=== PATIENT | female | born 1935 | race Caucasian/White ===

== ENCOUNTER 2018-06-02 12:18 | Inpatient (IN) | payer MEDICARE ==
[2018-06-02] MEDS ORDERED: SODIUM CHLORIDE 0.9% 1,000 ML IV STA (12:34)
--- NOTE | 2018-06-02 13:01 | ED ---
Weakness HPI - General Chief complaint: Weakness Stated complaint: Weakness Time Seen by Provider: 06/02/18 12:25 Source: patient, EMS, RN notes reviewed Mode of arrival: EMS Limitations: altered mental status - History of Present Illness Initial comments: This an 83-year-old female presents emergency department via EMS generalized weakness. Patient reports that her family is concerned about her and called 911. Patient states she has no specific complaints. Patient denies any recent fever, chills, headache, dizziness, blurred vision, nausea, vomiting, diarrhea, constipation, chest pain or shortness of breath. She has had a slight cough. She has no dysuria no hematuria. Patient is found to be slightly confused upon questioning. Patient has no focal weakness per EMS or patient. Patient denies missing her medications. She states she is taking her medications as directed. - Related Data Home Medications Medication Instructions Recorded Confirmed Aspirin 81 mg PO DAILY 02/25/15 06/02/18 Cephalexin 500 mg PO DAILY 02/25/15 06/02/18 Cholecalciferol [Vitamin D3] 1,000 unit PO DAILY 02/25/15 06/02/18 Cranberry Conc/C/Bacill Coag 1 tab PO DAILY 02/25/15 06/02/18 [Cranberry Tablet] Diazepam [Valium] 5 mg PO HS 02/25/15 06/02/18 Furosemide [Lasix] 20 mg PO MO 02/25/15 06/02/18 Hydrocodone/Acetaminophen 1 tab PO BID 02/25/15 06/02/18 [Hydrocodon-Acetaminophen 5-325] Lisinopril 20 mg PO DAILY 02/25/15 06/02/18 diphenhydrAMINE [Benadryl] 50 mg PO HS 02/25/15 06/02/18 Anastrozole [Arimidex] 1 mg PO DAILY 06/02/18 06/02/18 Atorvastatin Calcium [Lipitor] 20 mg PO DAILY 06/02/18 06/02/18 Levothyroxine Sodium [Synthroid] 75 mcg PO [id number] 06/02/18 06/02/18 Levothyroxine Sodium [Synthroid] 150 mcg PO MAN 06/02/18 06/02/18 Metoprolol Succinate [Toprol Xl] 50 mg PO HS 06/02/18 06/02/18 Allergies Allergy/AdvReac Type Severity Reaction Status Date / Time prochlorperazine edisylate Allergy Anaphylaxis, Verified 06/02/18 12:43 [From Compazine] THROAT SWELLS UP prochlorperazine maleate Allergy Anaphylaxis, Verified 06/02/18 12:43 [From Compazine] THROAT SWELLS UP Review of Systems ROS Statement: Those systems with pertinent positive or pertinent negative responses have been documented in the HPI. ROS Other: All systems not noted in ROS Statement are negative. Past Medical History Past Medical History: Cancer, CVA/TIA, Hyperlipidemia, Hypertension, Musculoskeletal Disorder, Osteoarthritis (OA), Thyroid Disorder Additional Past Medical History / Comment(s): TIA YEARS AGO, R/T STRESS. "BORDERLINE" KIDNEY PROB, FOLLOWS LOW-K+ DIET. HAS METAL IN RT HIP, HX SEV OR' S. MENIERES. OCC EDEMA IN LEGS. hx RT BREAST CA History of Any Multi-Drug Resistant Organisms: None Reported Past Surgical History: Appendectomy, Hysterectomy, Joint Replacement Additional Past Surgical History / Comment(s): RT HIP REPLACEMENT X7. EXC CATARACTS JUSTIN.RT BREAST LUMPECTOMY Past Anesthesia/Blood Transfusion Reactions: Postoperative Nausea & Vomiting ( PONV) Past Psychological History: No Psychological Hx Reported Smoking Status: Never smoker - Past Family History Mother Family Medical History: Cancer General Exam Limitations: altered mental status General appearance: alert, in no apparent distress Head exam: Present: atraumatic, normocephalic, normal inspection Eye exam: Present: normal appearance, PERRL, EOMI. Absent: scleral icterus, conjunctival injection, periorbital swelling ENT exam: Present: normal exam, normal oropharynx, mucous membranes moist, TM's normal bilaterally, normal external ear exam Neck exam: Present: normal inspection, full ROM. Absent: tenderness, meningismus, lymphadenopathy Respiratory exam: Present: normal lung sounds bilaterally. Absent: respiratory distress, wheezes, rales, rhonchi, stridor Cardiovascular Exam: Present: regular rate, normal rhythm, normal heart sounds. Absent: systolic murmur, diastolic murmur, rubs, gallop, clicks GI/Abdominal exam: Present: soft, normal bowel sounds. Absent: distended, tenderness, guarding, rebound, rigid Extremities exam: Present: normal inspection, full ROM, normal capillary refill. Absent: tenderness, pedal edema, joint swelling, calf tenderness Neurological exam: Present: alert, oriented X3, CN II-XII intact, reflexes normal, other (Finger to nose intact bilaterally without over shooting). Absent : motor sensory deficit Skin exam: Present: warm, dry, intact, normal color. Absent: rash Course Vital Signs 06/02/18 12:30 Temperature 98.6 F Pulse Rate 82 Respiratory 18 Rate Blood Pressure 184/98 O2 Sat by Pulse 100 Oximetry Medical Decision Making - Medical Decision Making 83-year-old female presents emergency department for weakness, confusion. Patient's found to have urinary tract infection. Patient will be admitted for IV antibiotics secondary to urinary tract infection with confusion. - Lab Data Result diagrams: 06/02/18 14:45 06/02/18 14:45 Lab Results 06/02/18 06/02/18 06/02/18 Range/Units 14:45 14:45 14:45 WBC 11.1 H (3.8-10.6) k/uL RBC 4.04 (3.80-5.40) m/uL Hgb 12.6 (11.4-16.0) gm/dL Hct 38.1 (34.0-46.0) % MCV 94.3 (80.0-100.0) fL MCH 31.1 (25.0-35.0) pg MCHC 33.0 (31.0-37.0) g/dL RDW 14.3 (11.5-15.5) % Plt Count 246 (150-450) k/uL Neutrophils % 75 % Lymphocytes % 12 % Monocytes % 8 % Eosinophils % 3 % Basophils % 0 % Neutrophils # 8.3 H (1.3-7.7) k/uL Lymphocytes # 1.3 (1.0-4.8) k/uL Monocytes # 0.9 (0-1.0) k/uL Eosinophils # 0.4 (0-0.7) k/uL Basophils # 0.0 (0-0.2) k/uL PT (9.0-12.0) sec INR (<1.2) APTT (22.0-30.0) sec Sodium 134 L (137-145) mmol/L Potassium 5.5 H (3.5-5.1) mmol/L Chloride 103 (98-107) mmol/L Carbon Dioxide 22 (22-30) mmol/L Anion Gap 9 mmol/L BUN 28 H (7-17) mg/dL Creatinine 1.33 H (0.52-1.04) mg/dL Est GFR (CKD-EPI)AfAm 43 (>60 ml/min/1.73 sqM) Est GFR (CKD-EPI)NonAf 37 (>60 ml/min/1.73 sqM) Glucose 115 H (74-99) mg/dL Plasma Lactic Acid [place] (0.7-2.0) mmol/L Calcium 9.3 (8.4-10.2) mg/dL Magnesium 2.3 (1.6-2.3) mg/dL Total Bilirubin 0.6 (0.2-1.3) mg/dL AST 25 (14-36) U/L ALT 28 (9-52) U/L Alkaline Phosphatase 104 (38-126) U/L Total Creatine Kinase 105 (30-135) U/L CK-MB (CK-2) 1.1 (0.0-2.4) ng/mL CK-MB (CK-2) Rel Index 1.0 Troponin I <0.012 (0.000-0.034) ng/mL Total Protein 7.3 (6.3-8.2) g/dL Albumin 4.1 (3.5-5.0) g/dL Urine Color Urine Appearance (Clear) Urine pH (5.0-8.0) Ur Specific [place] (1.001-1.035) Urine Protein (Negative) Urine Glucose (UA) (Negative) Urine Ketones (Negative) Urine Blood (Negative) Urine Nitrite (Negative) Urine Bilirubin (Negative) Urine Urobilinogen (<2.0) mg/dL Ur Leukocyte Esterase (Negative) Urine RBC (0-5) /hpf Urine WBC (0-5) /hpf Urine WBC Clumps (None) /hpf Urine Bacteria (None) /hpf Urine Mucus (None) /hpf 06/02/18 06/02/18 06/02/18 Range/Units 14:45 14:45 15:00 WBC (3.8-10.6) k/uL RBC (3.80-5.40) m/uL Hgb (11.4-16.0) gm/dL Hct (34.0-46.0) % MCV (80.0-100.0) fL MCH (25.0-35.0) pg MCHC (31.0-37.0) g/dL RDW (11.5-15.5) % Plt Count (150-450) k/uL Neutrophils % % Lymphocytes % % Monocytes % % Eosinophils % % Basophils % % Neutrophils # (1.3-7.7) k/uL Lymphocytes # (1.0-4.8) k/uL Monocytes # (0-1.0) k/uL Eosinophils # (0-0.7) k/uL Basophils # (0-0.2) k/uL PT 9.5 (9.0-12.0) sec INR 0.9 (<1.2) APTT 18.7 L (22.0-30.0) sec Sodium (137-145) mmol/L Potassium (3.5-5.1) mmol/L Chloride (98-107) mmol/L Carbon Dioxide (22-30) mmol/L Anion Gap mmol/L BUN (7-17) mg/dL Creatinine (0.52-1.04) mg/dL Est GFR (CKD-EPI)AfAm (>60 ml/min/1.73 sqM) Est GFR (CKD-EPI)NonAf (>60 ml/min/1.73 sqM) Glucose (74-99) mg/dL Plasma Lactic Acid [place] 0.8 (0.7-2.0) mmol/L Calcium (8.4-10.2) mg/dL Magnesium (1.6-2.3) mg/dL Total Bilirubin (0.2-1.3) mg/dL AST (14-36) U/L ALT (9-52) U/L Alkaline Phosphatase (38-126) U/L Total Creatine Kinase (30-135) U/L CK-MB (CK-2) (0.0-2.4) ng/mL CK-MB (CK-2) Rel Index Troponin I (0.000-0.034) ng/mL Total Protein (6.3-8.2) g/dL Albumin (3.5-5.0) g/dL Urine Color Light Yellow Urine Appearance Clear (Clear) Urine pH 6.5 (5.0-8.0) Ur Specific [place] 1.011 (1.001-1.035) Urine Protein 2+ H (Negative) Urine Glucose (UA) Negative (Negative) Urine Ketones Negative (Negative) Urine Blood Negative (Negative) Urine Nitrite Positive H (Negative) Urine Bilirubin Negative (Negative) Urine Urobilinogen 2.0 (<2.0) mg/dL Ur Leukocyte Esterase Small H (Negative) Urine RBC 1 (0-5) /hpf Urine WBC 26 H (0-5) /hpf Urine WBC Clumps Rare H (None) /hpf Urine Bacteria Many H (None) /hpf Urine Mucus Rare H (None) /hpf Disposition Clinical Impression: Urinary tract infection, Altered mental status Disposition: ADMITTED IP TO THIS HOSP Condition: Fair Referrals: Emilee Gutiérrez III, MD [Primary Care Provider] - 1-2 days
--- NOTE | 2018-06-02 13:40 | CT ---
EXAMINATION TYPE: CT brain wo con DATE OF EXAM: 06/02/2018 COMPARISON: 02/07/2013 HISTORY: weakness CT DLP: 1054.[address] of the brain was performed. The ventricles, basal cisterns and sulci overlying the cerebral convexities demonstrate mild enlargem ent. There is no evidence for intracranial hemorrhage or sulcal effacement. There is decreased attenuation about the periventricular white matter and deep white matter of both c erebral hemispheres, compatible with chronic small vessel ischemia. Differential diagnosis does inclu de demyelination. No mass effects are seen.No midline shift. Osseous calvarium is intact. If symptoms persist consider MRI. IMPRESSION: 1. Age related atrophic and chronic small vessel ischemic change without acute intracranial process s een at this time.
[2018-06-02 14:59] LABS: Basophils % (A) 0 %; Eosinophils # (A) 0.4 k/uL (0-0.7); Eosinophils % (A) 3 %; HCT 38.1 % (34.0-46.0); HGB 12.6 gm/dL (11.4-16.0); Lymphocytes # (A) 1.3 k/uL (1.0-4.8); Lymphocytes % (A) 12 %; MCH 31.1 pg (25.0-35.0); MCV 94.3 fL (80.0-100.0); Mean Platelet Volume 7.1; Monocytes # (A) 0.9 k/uL (0-1.0); Monocytes % (A) 8 %; Neutrophils # (A) 8.3 k/uL (1.3-7.7); Neutrophils % (A) 75 %; Platelet Count 246 k/uL (150-450); RBC 4.04 m/uL (3.80-5.40); RDW 14.3 % (11.5-15.5); WBC 11.1 k/uL (3.8-10.6)
[2018-06-02 15:09] LABS: Albumin 4.1 g/dL (3.5-5.0); Calcium 9.3 mg/dL (8.4-10.2); Magnesium 2.3 mg/dL (1.6-2.3); Potassium 5.5 mmol/L (3.5-5.1); Total Bilirubin 0.6 mg/dL (0.2-1.3); Total Protein 7.3 g/dL (6.3-8.2)
[2018-06-02 15:10] LABS: Creatine Kinase 105 U/L (30-135)
--- NOTE | 2018-06-02 15:22 | XR ---
EXAMINATION TYPE: XR chest 2V DATE OF EXAM: 06/02/2018 COMPARISON: NONE HISTORY: Chest pain TECHNIQUE: Frontal and lateral views of the chest are obtained. FINDINGS: There is no focal air space opacity. No evidence for pneumothorax. No pleural effusion. The cardiac silhouette size is within normal limits. The osseous structures are grossly intact. IMPRESSION: 1. No acute cardiopulmonary process.
[2018-06-02 15:23] LABS: Creatine Kinase MB 1.1 ng/mL (0.0-2.4); Troponin I <0.012 ng/mL (0.000-0.034)
[2018-06-02 15:27] LABS: INR 0.9 (<1.2); Prothrombin Time 9.5 sec (9.0-12.0)
[2018-06-02 15:38] LABS: Partial Thromboplastin Time 18.7 sec (22.0-30.0)
[2018-06-02 16:27] LABS: Appearance,Urine Clear (Clear); Bacteria,Urine Many /hpf; Bilirubin,Urine Negative (Negative); Blood,Urine Negative (Negative); Color,Urine Light Yellow; Glucose,Urine (UA) Negative (Negative); Ketones,Urine Negative (Negative); Leukocyte Esterase,Urine Small (Negative); Mucus,Urine Rare /hpf; Nitrite,Urine Positive (Negative); PH, Urine 6.5 (5.0-8.0); Protein,Urine 2+ (Negative); RBC,Urine 1 /hpf (0-5); Specific Gravity,Urine 1.011 (1.001-1.035); WBC,Urine 26 /hpf (0-5)
[2018-06-02] MEDS ORDERED: ACETAMINOPHEN TAB 325 MG TAB PO PRN (16:36)
[2018-06-02] MEDS ORDERED: ONDANSETRON 4 MG/2 ML VIAL IVP PRN (16:36)
[2018-06-02] MEDS: SODIUM CHLORIDE 0.9% 1,000 ML IV SCH (17:42)
[2018-06-02] MEDS: ATORVASTATIN 20 MG TAB PO SCH (20:07)
[2018-06-02] MEDS: ANASTROZOLE 1 MG TAB PO SCH (20:07)
[2018-06-02] MEDS: ASPIRIN 81 MG PO SCH (20:07)
[2018-06-02] MEDS: DIAZEPAM 5 MG TAB PO SCH (20:27)
[2018-06-02] MEDS: METOPROLOL SUCCINATE (ER) 50 MG TAB.ER.24H PO SCH (20:27)
[2018-06-02] MEDS ORDERED: amLODIPine 2.5 MG TAB PO STA (21:02)
[2018-06-02] MEDS: diphenhydrAMINE 25 MG CAP PO SCH (21:26)
[2018-06-02] MEDS: HYDROcodone/APAP 5-325MG 1 EACH TAB PO SCH (21:26)
[2018-06-02] MEDS: HEPARIN SODIUM,PORCINE 5,000 UNIT/ML 1 ML VIAL SQ SCH (22:14)
--- NOTE | 2018-06-02 23:25 | HP ---
HISTORY AND PHYSICAL DATE OF SERVICE: 06/02/2018 CHIEF COMPLAINTS: Weakness and change in mental status. HISTORY OF PRESENT ILLNESS: This 83-year-old woman with a past medical history of multiple medical problems, including CVA, TIA, hypertension, hyperlipidemia, history of DJD, history of hypothyroidism, appendectomy, hysterectomy, being followed by Dr. Gutiérrez in the outpatient setting, was noted to have generalized weakness. The family was concerned and dialed 911. The patient was taken to [facility] and was admitted for further evaluation and treatment. The patient has some confusion also. There is no history of any fever, rigor or chills. No history of headache, loss of consciousness, seizures. The patient was taking cephalexin daily. PAST MEDICAL HISTORY: 1. History of CVA, TIA. 2. Hypertension. 3. Hyperlipidemia. 4. History of DJD. 5. History of hypothyroidism. 6. History of TIA. HOME MEDICATIONS: 1. Benadryl 50 mg at bedtime. 2. Cephalexin 500 mg p.o. daily. 3. Synthroid 75 mcg Wednesday, Wednesday, Wednesday, , Wednesday, Wednesday and Synthroid 150 mcg p.o. Wednesday. 4. Lisinopril 20 mg p.o. daily. 5. Lasix 20 mg p.o. Wednesday. 6. Arimidex 1 mg p.o. daily. 7. Toprol-XL 50 mg at bedtime. 8. Hydrocodone 1 tablet p.o. b.i.d. 9. Valium 5 mg p.o. at bedtime. 10.Cranberry 1 tablet p.o. daily. 11.Vitamin D3 1000 daily. 12.Lipitor 20 mg daily. 13.Aspirin 81 mg p.o. daily. ALLERGIES: COMPAZINE. FAMILY HISTORY: History of cancer in the family. SOCIAL HISTORY: No history of smoking. No history of alcohol. REVIEW OF SYSTEMS: Review of systems could not be taken at length. PHYSICAL EXAMINATION: The pulse is 94, blood pressure 219/89, respirations 16, temperature 98.1, pulse ox 98% on room air. HEENT: Conjunctivae normal. NECK: No jugular venous distention. CARDIOVASCULAR SYSTEM: S1, S2 muffled. RESPIRATORY SYSTEM: Breath sounds diminished at the bases. A few scattered rhonchi and crackles. ABDOMEN: Soft, non-tender. LEGS: No edema. No swelling. NERVOUS SYSTEM: Higher functions as mentioned earlier. Otherwise, mild diffuse weakness. LYMPHATICS: No lymph node palpable in neck, axillae or groin. SKIN: No ulcer, rash, bleeding. LABS: WBC 11.1, sodium 134, potassium 5.5, creatinine 1.33. ASSESSMENT: 1. Change in mental status, possible urinary tract infection with sepsis. 2. Chronic kidney disease, stage III. 3. Mild hyponatremia. 4. Mild hyperkalemia. 5. Increased white count. 6. Hypertension. 7. History of cerebrovascular accident. 8. History of hyperlipidemia. 9. History of degenerative joint disease. 10.History of hypothyroidism. 11.History of appendectomy. 12.History of hysterectomy. 13.FULL CODE. RECOMMENDATIONS AND DISCUSSION: In this 83-year-old woman who presented with multiple medical problems, at this time I recommend to continue the current management, continue symptomatic treatment. Initiate broad-spectrum IV antibiotics. Otherwise obtain the cultures. Resume the home medications. DVT prophylaxis. Home medications will be continued. Hypertension medications will be adjusted. The prognosis is guarded because of multiple complex medical issues. Further recommendations to follow. A copy of this dictation is being forwarded to Dr. Gutiérrez, who is the primary physician. MMODL / IJN: [id number] /
[2018-06-03] MEDS: hydrALAZINE HCL 20 MG/ML 1 ML VIAL IVP PRN (04:39)
[2018-06-03] MEDS: SODIUM CHLORIDE 0.9% 1,000 ML IV SCH ×2 (06:08→13:13)
[2018-06-03] MEDS: LEVOTHYROXINE 75 MCG TAB PO SCH (06:10)
[2018-06-03] MEDS: PANTOPRAZOLE 40 MG TABLET PO SCH (08:36)
[2018-06-03] MEDS: ASPIRIN 81 MG PO SCH (08:36)
[2018-06-03] MEDS: HEPARIN SODIUM,PORCINE 5,000 UNIT/ML 1 ML VIAL SQ SCH ×2 (08:36→21:00)
[2018-06-03] MEDS: ATORVASTATIN 20 MG TAB PO SCH (08:36)
[2018-06-03] MEDS: HYDROcodone/APAP 5-325MG 1 EACH TAB PO SCH ×2 (08:37→21:00)
[2018-06-03] MEDS: LISINOPRIL 10 MG TAB PO SCH (08:39)
[2018-06-03] MEDS: ANASTROZOLE 1 MG TAB PO SCH (08:42)
[2018-06-03] MEDS ORDERED: NON-FORMULARY DRUG (Cranberry Conc/C/Bacill Coag [Cranberry Tablet] 1 TAB) PO SCH (09:00)
[2018-06-03 09:01] LABS: Basophils # (A) 0.1 k/uL (0-0.2); Basophils % (A) 1 %; Eosinophils # (A) 0.4 k/uL (0-0.7); Eosinophils % (A) 4 %; HGB 11.9 gm/dL (11.4-16.0); Lymphocytes # (A) 1.3 k/uL (1.0-4.8); Lymphocytes % (A) 13 %; MCH 32.1 pg (25.0-35.0); MCHC 32.9 g/dL (31.0-37.0); MCV 97.6 fL (80.0-100.0); Monocytes # (A) 0.9 k/uL (0-1.0); Monocytes % (A) 9 %; Neutrophils % (A) 71 %; Platelet Count 203 k/uL (150-450); RBC 3.69 m/uL (3.80-5.40); RDW 14.2 % (11.5-15.5); WBC 9.9 k/uL (3.8-10.6)
[2018-06-03 09:18] LABS: Calcium 8.7 mg/dL (8.4-10.2); Potassium 4.7 mmol/L (3.5-5.1)
[2018-06-03] MEDS: CHOLECALCIFEROL 1,000 UNIT TAB PO SCH (11:59)
--- NOTE | 2018-06-03 20:26 | PN ---
PROGRESS NOTE DATE OF SERVICE: 06/03/2018 This 83-year-old woman who was admitted with weakness and change in mental status has possible UTI with sepsis. The cultures are pending at this time. Patient is being closely monitored. No chest pain. No palpitations. Patient is confused at this time. Past medical history reviewed. Review of systems could not be taken. CURRENT MEDICATIONS: Reviewed. They include: 1. Tylenol 650 q.6 p.r.n. 2. [place] 5 mg b.i.d. 3. Arimidex 1 mg daily. 4. Aspirin 81 mg. 5. Lipitor 20 mg. 6. Rocephin 1 gram daily. 7. Vitamin D3. 8. Valium. 9. Benadryl. 10.Lasix. 11.Heparin. 12.Apresoline. 13.Synthroid. 14.Zestril. 15.Toprol-XL. 16.Zofran. 17.Protonix. PHYSICAL EXAMINATION: Patient is alert, oriented x2. Pulse 99, blood pressure 177/89, respirations 16, temperature 98.4, pulse ox 97% on room air. HEENT: Conjunctivae normal. NECK: No jugular venous distention. CARDIOVASCULAR SYSTEM: S1, S2 muffled. RESPIRATORY SYSTEM: Breath sounds diminished at the bases. A few scattered rhonchi and crackles. ABDOMEN: Soft, non-tender. LEGS: No edema. No swelling. NERVOUS SYSTEM: Diffusely weak. LABS: Creatinine 1.31, potassium 4.7. UA noted. Influenza is negative. ASSESSMENT: 1. Change in mental status, possible acute urinary tract infection with sepsis. 2. Acute on chronic metabolic encephalopathy secondary to sepsis. 3. Chronic kidney disease, stage III, baseline. 4. Mild hyponatremia. 5. Mild hyperkalemia. 6. Increased white count. 7. Hypertension. 8. History of cerebrovascular accident. 9. History of hyperlipidemia. 10.History of degenerative joint disease. 11.History of hypothyroidism. 12.History of appendectomy. 13.History hysterectomy. 14.FULL CODE. RECOMMENDATIONS AND DISCUSSION: In this 83-year-old woman who presented with multiple complex medical issues, we will monitor the patient closely, continue the current medications, follow the cultures. Otherwise, broad-spectrum IV antibiotics. DVT prophylaxis. Continue the rest of the medications. Prognosis guarded because of multiple complex medical issues. Further recommendations to follow. MMODL / IJN: [id number] /
[2018-06-03] MEDS: METOPROLOL SUCCINATE (ER) 50 MG TAB.ER.24H PO SCH (20:59)
[2018-06-03] MEDS: DIAZEPAM 5 MG TAB PO SCH (21:00)
[2018-06-03] MEDS: diphenhydrAMINE 25 MG CAP PO SCH (21:00)
[2018-06-04] MEDS: SODIUM CHLORIDE 0.9% 1,000 ML IV SCH (05:47)
[2018-06-04] MEDS: LEVOTHYROXINE 75 MCG TAB PO SCH (05:47)
[2018-06-04 08:01] LABS: Basophils % (A) 1 %; Eosinophils # (A) 0.5 k/uL (0-0.7); Eosinophils % (A) 7 %; HCT 33.9 % (34.0-46.0); HGB 11.1 gm/dL (11.4-16.0); Lymphocytes # (A) 1.4 k/uL (1.0-4.8); Lymphocytes % (A) 19 %; MCH 31.2 pg (25.0-35.0); MCHC 32.8 g/dL (31.0-37.0); Mean Platelet Volume 7.9; Monocytes # (A) 0.8 k/uL (0-1.0); Monocytes % (A) 10 %; Neutrophils # (A) 4.4 k/uL (1.3-7.7); Neutrophils % (A) 61 %; Platelet Count 192 k/uL (150-450); RBC 3.57 m/uL (3.80-5.40); RDW 14.2 % (11.5-15.5); WBC 7.2 k/uL (3.8-10.6)
[2018-06-04] MEDS: LISINOPRIL 10 MG TAB PO SCH (08:07)
[2018-06-04] MEDS: PANTOPRAZOLE 40 MG TABLET PO SCH (08:07)
[2018-06-04] MEDS: ASPIRIN 81 MG PO SCH (08:07)
[2018-06-04] MEDS: HYDROcodone/APAP 5-325MG 1 EACH TAB PO SCH ×2 (08:08→20:19)
[2018-06-04] MEDS: ATORVASTATIN 20 MG TAB PO SCH (08:08)
[2018-06-04] MEDS: ANASTROZOLE 1 MG TAB PO SCH (08:08)
[2018-06-04] MEDS: HEPARIN SODIUM,PORCINE 5,000 UNIT/ML 1 ML VIAL SQ SCH ×2 (08:08→20:19)
[2018-06-04 08:13] LABS: Calcium 8.5 mg/dL (8.4-10.2); Potassium 4.7 mmol/L (3.5-5.1)
[2018-06-04] MEDS: CHOLECALCIFEROL 1,000 UNIT TAB PO SCH (12:10)
--- NOTE | 2018-06-04 18:44 | PN ---
PROGRESS NOTE DATE OF SERVICE: 06/04/2018 This 83-year-old woman was admitted with change in mental status, UTI with sepsis, is being closely monitored. Patient had some change in mental status, sensorium improving at this time. Urine culture showed gram-negative bacilli. PHYSICAL EXAMINATION: On exam, alert and oriented x3. Pulse 74, blood pressure is 142/65, respirations 16, temperature 97.6, pulse ox 98% on room air. HEENT: Conjunctivae normal. NECK: No jugular venous distention. CARDIOVASCULAR: S1, S2 muffled. RESPIRATORY: Breath sounds diminished in the bases. No rhonchi, no crackles. Abdomen is soft, nontender. LEGS: No edema, no swelling. NERVOUS SYSTEM: Diffusely weak. LABS: WBC 7.2, hemoglobin 11.1. Sodium is 134. ASSESSMENT: 1. Change in mental status possible acute urinary tract infection with sepsis and metabolic encephalopathy, acute secondary to sepsis. 2. Chronic kidney disease stage 3 baseline. 3. Mild hyponatremia. 4. Mild hyperkalemia. 5. Increased WBC. 6. Hypertension. 7. History of cerebrovascular accident. 8. History of hyperlipidemia. 9. History of degenerative joint disease. 10.History of hypothyroidism. 11.History of appendectomy. 12.History of hysterectomy. 13.FULL CODE. RECOMMENDATIONS AND DISCUSSION: I recommend to continue current medication, continue symptomatic treatment. Will follow the cultures. Continued with antibiotics. Otherwise PT, OT evaluation with possible ECF rehab if the patient continues to be weak. Otherwise, continue the rest of the medications. Guarded prognosis. Further recommendations to follow. MMODL / IJN: [id number] / ANATOLIY
[2018-06-04] MEDS: diphenhydrAMINE 25 MG CAP PO SCH (20:20)
[2018-06-04] MEDS: METOPROLOL SUCCINATE (ER) 50 MG TAB.ER.24H PO SCH (20:20)
[2018-06-04] MEDS: DIAZEPAM 5 MG TAB PO SCH (20:20)
[2018-06-04] MEDS: hydrALAZINE HCL 20 MG/ML 1 ML VIAL IVP PRN (22:43)
[2018-06-05] MEDS: hydrALAZINE HCL 20 MG/ML 1 ML VIAL IVP PRN (05:31)
[2018-06-05] MEDS: LISINOPRIL 10 MG TAB PO SCH (05:33)
[2018-06-05] MEDS ORDERED: LEVOTHYROXINE 75 MCG TAB PO SCH (06:30)
[2018-06-05] MEDS: HYDROcodone/APAP 5-325MG 1 EACH TAB PO SCH ×2 (08:14→21:25)
[2018-06-05] MEDS: PANTOPRAZOLE 40 MG TABLET PO SCH (08:15)
[2018-06-05] MEDS: ATORVASTATIN 20 MG TAB PO SCH ×2 (08:15→13:01)
[2018-06-05] MEDS: ASPIRIN 81 MG PO SCH ×2 (08:15→13:01)
[2018-06-05] MEDS: HEPARIN SODIUM,PORCINE 5,000 UNIT/ML 1 ML VIAL SQ SCH ×2 (08:15→21:25)
[2018-06-05] MEDS: ANASTROZOLE 1 MG TAB PO SCH ×2 (08:15→14:19)
[2018-06-05 09:01] LABS: Basophils % (A) 1 %; Eosinophils # (A) 0.3 k/uL (0-0.7); Eosinophils % (A) 4 %; HCT 36.1 % (34.0-46.0); HGB 11.6 gm/dL (11.4-16.0); Lymphocytes # (A) 0.9 k/uL (1.0-4.8); Lymphocytes % (A) 12 %; MCH 30.6 pg (25.0-35.0); MCHC 32.2 g/dL (31.0-37.0); MCV 95.2 fL (80.0-100.0); Mean Platelet Volume 7.6; Monocytes # (A) 0.5 k/uL (0-1.0); Monocytes % (A) 7 %; Neutrophils # (A) 5.7 k/uL (1.3-7.7); Neutrophils % (A) 74 %; Platelet Count 238 k/uL (150-450); RBC 3.79 m/uL (3.80-5.40); RDW 14.2 % (11.5-15.5); WBC 7.7 k/uL (3.8-10.6)
[2018-06-05 09:03] LABS: Calcium 8.7 mg/dL (8.4-10.2)
[2018-06-05 09:32] LABS: Potassium 5.1 mmol/L (3.5-5.1)
--- NOTE | 2018-06-05 12:38 | XR ---
EXAMINATION TYPE: XR chest 1V portable DATE OF EXAM: 06/05/2018 HISTORY: cough. REFERENCE: Previous study dated 06/02/2018. FINDINGS: The lungs remain clear. Pleural space are clear. Heart size is within normal limits. IMPRESSION: NO ACUTE CARDIOTHORACIC ABNORMALITY.
[2018-06-05] MEDS: PANTOPRAZOLE 40 MG/10 ML VIAL IVP SCH ×2 (13:01→21:25)
[2018-06-05] MEDS: CHOLECALCIFEROL 1,000 UNIT TAB PO SCH (13:01)
[2018-06-05] MEDS: PSEUDOEPHEDRINE 30 MG TAB PO SCH ×2 (14:19→16:27)
[2018-06-05] MEDS ORDERED: LEVOFLOXACIN 500MG-D5W PMX 500 MG in DEXTROSE/WATER 1 100ML.BAG IVPB SCH (16:00)
[2018-06-05] MEDS: SODIUM CHLORIDE 0.9% 1,000 ML IV SCH (20:09)
[2018-06-05] MEDS: diphenhydrAMINE 25 MG CAP PO SCH (21:25)
[2018-06-05] MEDS: DIAZEPAM 5 MG TAB PO SCH (21:25)
[2018-06-05] MEDS: METOPROLOL SUCCINATE (ER) 50 MG TAB.ER.24H PO SCH (21:33)
--- NOTE | 2018-06-05 22:04 | PN ---
PROGRESS NOTE DATE OF SERVICE: 06/05/2018 This 83-year-old woman who was admitted with change in mental status, UTI, sepsis, also had vomiting. The patient is being closely monitored. The patient otherwise had significant upper respiratory infection as well. The the urine culture showed the final urine culture showed Enterobacter cloacae, which is sensitive to Levaquin. Antibiotics being at this time. PAST MEDICAL HISTORY: Reviewed. REVIEW OF SYSTEM: ENT: As mentioned earlier. CARDIOVASCULAR: As mentioned earlier. GI: As mentioned earlier. : No dysuria. CENTRAL NERVOUS SYSTEM: No numbness, weakness. CURRENT MEDICATIONS ARE: Reviewed and include: 1. Tylenol 650 q.6. 2. [place] 5 mg. 3. Arimidex. 4. Aspirin 81 mg. 5. Lipitor. 6. Vitamin D. 7. Valium. 8. Benadryl. 9. Lasix 20 mg p.o. b.i.d. 10.Heparin subcu 5000. 11.Apresoline p.r.n. 12.Levaquin 500 mg. 13.Synthroid. 14.Zestril 20 mg daily. 15.Toprol-XL 50 mg p.o. q.h.s. 16.Protonix. 17.Sudafed 30 mg p.o. t.i.d. 18.IV fluids at 40 mL/hour. PHYSICAL EXAM: Patient is alert, oriented x2. Pulse is 81, blood pressure 138/91, respirations 16, temperature 97.2, pulse ox 95% on room air. HEENT: Conjunctivae normal. NECK: No jugular venous distention. CARDIOVASCULAR: S1, S2 muffled. RESPIRATORY: Breath sounds diminished in the bases. A few scattered rhonchi and crackles. ABDOMEN: Soft, nontender. LEGS: No edema. No swelling. NERVOUS SYSTEM: Higher functions as mentioned earlier. Moves all four limbs. No focal deficits. lymphatics: No lymph nodes palpable in the neck, axillae or groin. SKIN: No ulcer, rash or bleeding. LABS: At this time shows chest x-ray which was personally reviewed by me showed no acute abnormality. Other labs are WBC 7.2, hemoglobin 11.6 and sodium 134, creatinine is 1.28. Influenza is negative. ASSESSMENT: 1. Change in mental status with possible urinary tract infection with sepsis Enterobacter cloacae resistant and as well as metabolic encephalopathy, acute on chronic sepsis. 2. Chronic kidney stage 3 baseline. 3. Upper respiratory infection. 4. Mild hyponatremia. 5. Mild hyperkalemia. 6. Increased WBC. 7. Hypertension. 8. History of cerebrovascular accident. 9. History of hyperlipidemia. 10.History of degenerative joint disease. 11.Hypothyroidism. 12.History of appendectomy. 13.History of hysterectomy. 14.FULL CODE. RECOMMENDATIONS AND DISCUSSION: Recommend to continue current medications, management and symptomatic treatment. Continue with the bronchodilators. Continue with symptomatic treatment. change antibiotics to Levaquin. Otherwise, overall prognosis extremely guarded because of multiple complex medical issues. I would also recommend continue monitoring and followup. Also discussed with the family, understands and agrees. Further recommendations to follow. MMODL / IJN: [id number] / ANATOLIY
[2018-06-06] MEDS: PSEUDOEPHEDRINE 30 MG TAB PO SCH ×4 (00:10→21:29)
[2018-06-06 05:56] VITALS: RESP 16
[2018-06-06] MEDS: LEVOTHYROXINE 75 MCG TAB PO SCH (06:17)
[2018-06-06 07:59] LABS: Basophils % (A) 1 %; Eosinophils # (A) 0.5 k/uL (0-0.7); Eosinophils % (A) 8 %; HCT 34.9 % (34.0-46.0); HGB 11.3 gm/dL (11.4-16.0); Lymphocytes # (A) 0.9 k/uL (1.0-4.8); Lymphocytes % (A) 16 %; MCH 30.7 pg (25.0-35.0); MCHC 32.4 g/dL (31.0-37.0); Mean Platelet Volume 7.2; Monocytes # (A) 0.6 k/uL (0-1.0); Monocytes % (A) 10 %; Neutrophils # (A) 3.5 k/uL (1.3-7.7); Neutrophils % (A) 62 %; Platelet Count 234 k/uL (150-450); RBC 3.67 m/uL (3.80-5.40); RDW 14.1 % (11.5-15.5); WBC 5.7 k/uL (3.8-10.6)
[2018-06-06] MEDS: LISINOPRIL 10 MG TAB PO SCH (08:01)
[2018-06-06] MEDS: ATORVASTATIN 20 MG TAB PO SCH (08:01)
[2018-06-06] MEDS: SODIUM CHLORIDE 0.9% 1,000 ML IV SCH ×2 (08:01→21:41)
[2018-06-06] MEDS: PANTOPRAZOLE 40 MG/10 ML VIAL IVP SCH ×2 (08:01→21:29)
[2018-06-06] MEDS: ASPIRIN 81 MG PO SCH (08:01)
[2018-06-06] MEDS: HYDROcodone/APAP 5-325MG 1 EACH TAB PO SCH ×2 (08:02→21:26)
[2018-06-06] MEDS: HEPARIN SODIUM,PORCINE 5,000 UNIT/ML 1 ML VIAL SQ SCH ×2 (08:02→21:25)
[2018-06-06] MEDS: ANASTROZOLE 1 MG TAB PO SCH (08:04)
[2018-06-06 08:20] LABS: Calcium 8.6 mg/dL (8.4-10.2); Potassium 4.6 mmol/L (3.5-5.1)
[2018-06-06] MEDS ORDERED: FUROSEMIDE 20 MG TAB PO SCH (09:00)
[2018-06-06] MEDS: CHOLECALCIFEROL 1,000 UNIT TAB PO SCH (11:54)
[2018-06-06] MEDS ORDERED: LEVOFLOXACIN 250MG-D5W PMX 250 MG in DEXTROSE/WATER 1 50ML.BAG IVPB SCH (16:00)
--- NOTE | 2018-06-06 19:50 | PN ---
PROGRESS NOTE DATE OF SERVICE: 06/06/2018 DATE OF SERVICE: This 83-year-old woman was admitted with UTI with sepsis also had Enterobacter cloacae resistant multiple antibiotics. The patient was asymptomatic yesterday but however after switching to Levaquin, the patient is feeling much better. No chest pain. No palpitations. Mildly confused. PHYSICAL EXAM: Alert and oriented x3. Pulse is 74. Blood pressure 179/88, respiration 16, temperature 97.3, pulse ox is normal. HEENT: Conjunctivae normal. NECK is no jugular venous distention. CARDIOVASCULAR: S1, S2 muffled. RESPIRATORY: Breath sounds diminished in the bases. A few scattered rhonchi. No crackles. ABDOMEN: Soft, nontender. No mass palpable. LEGS: No edema. No swelling. NERVOUS SYSTEM: Higher functions as mentioned earlier. Moves all four extremities. No focal deficits. LYMPHATICS: No lymph nodes palpable in the neck, axillae or groin. SKIN: No rash, no bleeding. LAB STUDIES: At this time shows some creatinine is 1.38, sodium 134. WBC 12.2, Hemoglobin is 11.3. ASSESSMENT: 1. Change in mental status with possible acute urinary tract infection with sepsis Enterobacter cloacae resistant as well as metabolic encephalopathy acute on chronic with sepsis. 2. Chronic kidney stage 3 baseline. 3. Upper respiratory infection. 4. Mild hyponatremia. 5. Mild hyperkalemia. 6. WBC. 7. Hypertension. 8. History of cerebrovascular incident. 9. History of hyperlipidemia. 10.History of degenerative joint disease. 11.History of hypothyroidism. 12.History of appendectomy. 13.History of hysterectomy. 14.FULL CODE. RECOMMENDATIONS AND DISCUSSION: Recommend to continue current medications, management and symptomatic treatment. Increased dose of metoprolol. Continue with antibiotics. Continue the rest of medications. Guarded prognosis because of multiple complex medical issues. If the patient is making continued improvement, I will send the patient to rehab. Further recommendations to follow. MMODL / IJN: [id number] /
[2018-06-06] MEDS: diphenhydrAMINE 25 MG CAP PO SCH (21:26)
[2018-06-06] MEDS: DIAZEPAM 5 MG TAB PO SCH ×2 (21:27→21:28)
[2018-06-06] MEDS: METOPROLOL SUCCINATE (ER) 50 MG TAB.ER.24H PO SCH (21:27)
[2018-06-07 08:52] LABS: Calcium 8.7 mg/dL (8.4-10.2)
[2018-06-07 08:57] LABS: Basophils # (A) 0.1 k/uL (0-0.2); Basophils % (A) 1 %; Eosinophils # (A) 0.6 k/uL (0-0.7); Eosinophils % (A) 10 %; HCT 32.4 % (34.0-46.0); HGB 11.2 gm/dL (11.4-16.0); Lymphocytes # (A) 1.5 k/uL (1.0-4.8); Lymphocytes % (A) 27 %; MCH 31.9 pg (25.0-35.0); MCHC 34.6 g/dL (31.0-37.0); MCV 92.3 fL (80.0-100.0); Mean Platelet Volume 8.4; Monocytes # (A) 0.6 k/uL (0-1.0); Monocytes % (A) 11 %; Neutrophils # (A) 2.8 k/uL (1.3-7.7); Neutrophils % (A) 49 %; Platelet Count 183 k/uL (150-450); RBC 3.51 m/uL (3.80-5.40); WBC 5.7 k/uL (3.8-10.6)
[2018-06-07] MEDS: LISINOPRIL 10 MG TAB PO SCH (09:18)
[2018-06-07] MEDS: PANTOPRAZOLE 40 MG/10 ML VIAL IVP SCH (09:18)
[2018-06-07] MEDS: LEVOTHYROXINE 75 MCG TAB PO SCH (09:18)
[2018-06-07 09:19] LABS: Potassium 4.8 mmol/L (3.5-5.1)
[2018-06-07] MEDS: ASPIRIN 81 MG PO SCH (09:19)
[2018-06-07] MEDS: HEPARIN SODIUM,PORCINE 5,000 UNIT/ML 1 ML VIAL SQ SCH (09:20)
[2018-06-07] MEDS: ATORVASTATIN 20 MG TAB PO SCH (09:20)
[2018-06-07] MEDS: HYDROcodone/APAP 5-325MG 1 EACH TAB PO SCH (09:20)
[2018-06-07] MEDS: PSEUDOEPHEDRINE 30 MG TAB PO SCH ×2 (09:21→16:07)
[2018-06-07] MEDS: METOPROLOL SUCCINATE (ER) 50 MG TAB.ER.24H PO SCH (09:21)
[2018-06-07] MEDS: CHOLECALCIFEROL 1,000 UNIT TAB PO SCH (11:20)
[2018-06-07] MEDS: ANASTROZOLE 1 MG TAB PO SCH (11:20)
[2018-06-07 14:04] VITALS: BP 136/76; PULSE 83; TEMP 96.8
--- NOTE | 2018-06-07 15:51 | P.DS ---
Providers Date of admission: 06/02/18 16:40 Expected date of discharge: 06/07/18 Attending physician: Kj Lund Primary care physician: Emilee Gutiérrez [facility] Course: Discharge diagnosis Altered mental status. Possible metabolic encephalopathy due to infection Acute urinary tract infection and possible sepsis due to Enterobacter [place] CK D stage III URI Hypovolemic hyponatremia Mild hyperkalemia Hypertension History of CVA Hyperlipidemia DM joint disease Hypothyroidism History of appendectomy History of hysterectomy Patient is full code Hospital course 83-year-old female with known history of previous UTI and multiple medical problems admitted to the hospital due to generalized weakness. Patient was found have acute urinary tract infection and was started on antibiotics in the form of ceftriaxone. Urine culture showed Enterobacter species which is sensitive to Levaquin. Patient was started back on Levaquin. Patient is feeling better now. No compressive abdominal pain. No nausea vomiting he had no chest pain her mother. Confusion is much improved. Patient otherwise stable to be discharged to [facility] in stable condition Discharge physical examination Patient is awake alert and oriented HEENT. Atraumatic normocephalic. Extraocular muscles intact. No pallor no icterus. Lungs bilateral air entry clear. No wheezing heart S1-S2 heard no murmurs no gallop Abdomen: Soft nontender bowel sounds are present Extremities. No edema no swelling pulses palpable KAITARA TARAKA: Patient is awake alert and oriented 2-3. Able to move all her extremities. No focal deficits noted. Skin no rash or skin lesions Psychiatric: Cooperative. Nonsuicidal Vital Signs - 8 hr 06/07/18 14:02 Temperature 96.8 F L Pulse Rate [ 83 Apical] Respiratory 16 Rate Blood Pressure 136/76 [Right Arm] O2 Sat by Pulse 96 Oximetry Total time taken greater than 35 minutes including 18 minutes for counseling and coordination of care. Patient Condition at Discharge: Fair Plan - Discharge Summary Discharge Rx Participant: No New Discharge Prescriptions: New HYDROcodone/APAP 5-325MG [[place] 5-325] 1 each PO BID 3 Days #6 tab Levofloxacin [Levaquin] 250 mg PO DAILY 3 Days #3 tablet Continue Diazepam [Valium] 5 mg PO HS Furosemide [Lasix] 20 mg PO MO diphenhydrAMINE [Benadryl] 50 mg PO HS Cholecalciferol [Vitamin D3] 1,000 unit PO DAILY Cranberry Conc/C/Bacill Coag [Cranberry Tablet] 1 tab PO DAILY Aspirin 81 mg PO DAILY Lisinopril 20 mg PO DAILY Levothyroxine Sodium [Synthroid] 150 mcg PO MAN Levothyroxine Sodium [Synthroid] 75 mcg PO MOTUWETHFRSA Anastrozole [Arimidex] 1 mg PO DAILY Metoprolol Succinate [Toprol Xl] 50 mg PO HS Atorvastatin Calcium [Lipitor] 20 mg PO DAILY Discontinued Hydrocodone/Acetaminophen [Hydrocodon-Acetaminophen 5-325] 1 tab PO BID Cephalexin 500 mg PO DAILY Discharge Medication List Aspirin 81 mg PO DAILY 02/25/15 [History] Cholecalciferol [Vitamin D3] 1,000 unit PO DAILY 02/25/15 [History] Cranberry Conc/C/Bacill Coag [Cranberry Tablet] 1 tab PO DAILY 02/25/15 [History ] Diazepam [Valium] 5 mg PO HS 02/25/15 [History] Furosemide [Lasix] 20 mg PO MO 02/25/15 [History] Lisinopril 20 mg PO DAILY 02/25/15 [History] diphenhydrAMINE [Benadryl] 50 mg PO HS 02/25/15 [History] Anastrozole [Arimidex] 1 mg PO DAILY 06/02/18 [History] Atorvastatin Calcium [Lipitor] 20 mg PO DAILY 06/02/18 [History] Levothyroxine Sodium [Synthroid] 75 mcg PO MOTUWETHFRSA 06/02/18 [History] Levothyroxine Sodium [Synthroid] 150 mcg PO MAN 06/02/18 [History] Metoprolol Succinate [Toprol Xl] 50 mg PO HS 06/02/18 [History] HYDROcodone/APAP 5-325MG [[place] 5-325] 1 each PO BID 3 Days #6 tab 06/07/18 [Rx] Levofloxacin [Levaquin] 250 mg PO DAILY 3 Days #3 tablet 06/07/18 [Rx] Follow up Appointment(s)/Referral(s): Emilee Gutiérrez III, MD [Primary Care Provider] - 1-2 days [facility] [place], [NON-STAFF] - As Needed Activity/Diet/Wound Care/Special Instructions: 1. Activity as tolerated 2. Continue heart healthy diet as tolerated Discharge Disposition: TRANSFER TO SNF/ECF
== END 2018-06-07 16:50 | DRG 871 ==
LOC: EC 12:18 → 3NMEDONC 16:40
PROVIDERS: ADMIT Hospitalist; ATTEND Hospitalist
DX: A41.59 Other Gram-negative sepsis (principal); G93.41 Metabolic encephalopathy; N39.0 Urinary tract infection, site not specified; E87.1 Hypo-osmolality and hyponatremia; R65.20 Severe sepsis without septic shock; E03.9 Hypothyroidism, unspecified; E78.5 Hyperlipidemia, unspecified; E87.5 Hyperkalemia; I12.9 Hypertensive chronic kidney disease with stage 1 through stage 4 chronic kidney disease, or unspecified chronic kidney disease; J06.9 Acute upper respiratory infection, unspecified; N18.3 Chronic kidney disease, stage 3 (moderate); M19.90 Unspecified osteoarthritis, unspecified site; Z79.811 Long term (current) use of aromatase inhibitors; Z79.82 Long term (current) use of aspirin; Z79.899 Other long term (current) drug therapy; Z79.890 Hormone replacement therapy; Z88.8 Allergy status to other drugs, medicaments and biological substances; Z96.641 Presence of right artificial hip joint; Z90.710 Acquired absence of both cervix and uterus; Z90.49 Acquired absence of other specified parts of digestive tract; Z87.440 Personal history of urinary (tract) infections; Z86.73 Personal history of transient ischemic attack (TIA), and cerebral infarction without residual deficits; Z85.3 Personal history of malignant neoplasm of breast; Z98.42 Cataract extraction status, left eye; Z98.41 Cataract extraction status, right eye; Z96.1 Presence of intraocular lens; Z80.9 Family history of malignant neoplasm, unspecified
CPT/HCPCS: 36415; 70450; 71045; 71046; 80048; 80053; 81001; 82550; 82553; 83605; 83735; 84484; 85025; 85610; 85730; 87040; 87077; 87086; 87186; 87502; 93005; 94760; 96361; 96365; 99285